=== PATIENT | female | born 1985 | race African-American/Black ===

== ENCOUNTER 2020-08-03 23:10 | Emergency (ER) | payer OTHER ==
[~2020-08-03] VITALS: Ht 157.5 cm; Wt 64.5 kg
[2020-08-03 23:36] VITALS: TEMP 97.2
[2020-08-04 00:05] LABS: COLLECTION METHOD CLEAN CATCH
[2020-08-04 00:14] LABS: MUCOUS Present /lpf; PH 6 (5-8); URINE APPEARANCE Hazy; URINE BACTERIA None Seen /hpf; URINE BILIRUBIN Positive (NEGATIVE); URINE BLOOD Negative (NEGATIVE); URINE COLOR Yellow; URINE GLUCOSE Negative (NEGATIVE); URINE KETONE Negative (NEGATIVE); URINE LEUKOCYTE ESTERASE Trace (NEGATIVE); URINE NITRATE Negative (NEGATIVE); URINE PROTEIN(semi-quant) Negative (NEGATIVE); URINE RBC 0-2 /hpf; URINE UROBILINOGEN Negative (NEGATIVE)
[2020-08-04] MEDS ORDERED: FLEXERIL 1010 MG/TAB PO (01:17)
[2020-08-04 01:19] VITALS: BP 116/83; PULSE 79
== END 2020-08-04 01:19 | disposition home or self-care (01) ==
LOC: COL.ER 23:10
PROVIDERS: Physician Assistant
DX: M54.6 Pain in thoracic spine (principal); Z32.02 Encounter for pregnancy test, result negative
CPT/HCPCS: J1885; J2360